=== PATIENT | female | born 1955 | race African-American/Black ===

== ENCOUNTER 2018-06-22 05:29 | Emergency (ER) | payer MEDICAID ==
[~2018-06-22] VITALS: Ht 167.6 cm; Wt 81.8 kg
[2018-06-22] MEDS ORDERED: MAGNESIUM/ALUMINUM HYDROXIDE/SIMETHICONE 30ML UDC PO ONE (12:00)
[2018-06-22] MEDS ORDERED: ONDANSETRON 4MG ODT PO ONE (12:00)
[2018-06-22 12:30] VITALS: BP 147/80
== END 2018-06-22 12:37 | disposition home or self-care (01) ==
LOC: ER 05:29
DX: R10.13 Epigastric pain (principal); R11.2 Nausea with vomiting, unspecified; R19.7 Diarrhea, unspecified; R03.0 Elevated blood-pressure reading, without diagnosis of hypertension
CPT/HCPCS: 99283; Q0162